=== PATIENT | male | born 1975 | race Asian ===

== ENCOUNTER 2019-07-09 23:54 | Emergency (ER) | payer OTHER ==
[~2019-07-09] VITALS: Ht 180.3 cm; Wt 66.7 kg
[2019-07-10 00:11] VITALS: BP 138/91
--- NOTE | 2019-07-10 00:12 | NUR ---
ER Nurse Note: Pt walked in c/o RT foot pain since 2044. Pt stated a small cabinet fell on his RT foot. Pt able to move toes; pt stated pressure and movement increases pain. Pt took 3 tabs of motrin at 2099 and states 3/10 pain. Pt walks with limp; greater pressure on LT foot than RT foot. Cap refill less than 3 secs. Ankle red in pigmentation and slightly swollen. [facility]
--- NOTE | 2019-07-10 00:35 | Diagnostic Imaging Report ---
EXAM: XR Right Foot Complete, 3 or More Views CLINICAL HISTORY: PAIN TECHNIQUE: Frontal, lateral and oblique views of the right foot. COMPARISON: No relevant prior studies available. FINDINGS: Bones/joints: No acute fracture. No dislocation. Soft tissues: Unremarkable. No radiopaque foreign body. IMPRESSION: No acute osseous abnormalities.
[2019-07-10] MEDS ORDERED: IBUPROFEN600 MG ORAL (00:55)
[2019-07-10 01:00] VITALS: BP 138/91
--- NOTE | 2019-07-10 01:00 | NUR ---
ED Nurse Note: All orders completed per ERMD orders. Pt cleared by health care Provider for discharge. DC instructions/prescription was given and explained to pt and verbalized understanding of teachings. Instructed pt to follow up with primary care physican within one week. All medical deviecs such as ID band removed. Pt is AAO x4, ambulatory and left with all personal belongings.
--- NOTE | 2019-07-10 01:35 | Emergency Room Report ---
History of Present Illness General Chief Complaint: Lower Extremity Injury Source: Patient Present Illness HPI 43-year-old male presents the ED for evaluation of right foot pain. States that he dropped a cabinet on his right foot tonight. States he took medication prior to arrival. Denies pain at this time. States there was initially a lot of pain. States he is able to walk with a hop. Denies any other injuries. No other aggravating relieving factors. Denies any other associated symptoms Allergies: Coded Allergies: No Known Allergies (Unverified , 07/10/19) Patient History Past Medical History: none Past Surgical History: none Pertinent Family History: none Social History: Denies: smoking, alcohol use, drug use Immunizations: UTD Reviewed Nursing Documentation: PMH: Agreed; PSxH: Agreed Nursing Documentation-PMH Past Medical History: No Stated History Review of Systems All Other Systems: negative except mentioned in HPI Physical Exam Vital Signs Date Time Temp Pulse Resp B/P (MAP) Pulse Ox O2 Delivery O2 Flow Rate FiO2 07/10/19 00:02 97.9 60 16 138/91 (107) 99 Room Air Sp02 EP Interpretation: reviewed, normal General Appearance: no apparent distress, alert, GCS 15, non-toxic Head: normocephalic Eyes: bilateral eye normal inspection, bilateral eye PERRL ENT: normal ENT inspection Neck: normal inspection Respiratory: normal inspection Cardiovascular #1: normal inspection Gastrointestinal: normal inspection Rectal: deferred Genitourinary: no CVA tenderness Musculoskeletal: back normal, normal range of motion, gait/station normal, tender - R foot Neurologic: alert, motor strength/tone normal, oriented x3, sensory intact, responsive, speech normal Psychiatric: normal inspection Skin: no rash Lymphatic: normal inspection Procedures Splinting Splinting : Consent: Verbal Pre-Made Type: cast shoe Pre-Proc Neuro Vasc Exam: normal Post-Proc Neuro Vasc Exam: normal Patient Tolerated: Well Complications: None Medical Decision Making Diagnostic Impression: Primary Impression: Foot contusion Qualified Codes: S90.31XA - Contusion of right foot, initial encounter ER Course Hospital Course 43-year-old M presents to ED complaining of R foot pain Differential diagnoses include: Fracture, dislocation, sprain, contusion Clinical course Patient placed on stretcher. After initial history and physical, I ordered Xrays of R foot. patient declined pain meds Xrays read shows no acute fracture/dislocation. placed in cast shoe. I discussed findings with patient. Will discharge home. Safe for discharge with close outpatient follow-up. I will provide referrals Diagnosis - foot contusion Stable and discharged to home with prescription for Motrin. apply ice, keep elevated. weight bear as tolerated. Followup with PMD. Return to ED if symptoms recur or worsen Other X-Ray Diagnostic Results Other X-Ray Diagnostic Results : X-Ray ordered: R foot # of Views/Limited Vs Complete: 3 View Indication: Pain EP Interpretation: Yes Interpretation: no dislocation, no soft tissue swelling, no fractures Impression: No acute disease Electronically Signed by: Electronically signed by Romaine Walker MD Last Vital Signs Date Time Temp Pulse Resp B/P (MAP) Pulse Ox O2 Delivery O2 Flow Rate FiO2 07/10/19 01:00 97.9 60 16 138/91 99 Room Air Status: improved Disposition: HOME, SELF-CARE Condition: Stable Scripts Ibuprofen* (MOTRIN*) 600 Mg Tablet 600 MG ORAL Q8H PRN for For Pain, #30 TAB 0 Refills Prov: Romaine Walker MD 07/10/19 [facility] 24 hour /7 days a week by Appointment Only [address] [address] Departure Forms: Return to Work Return to Work Date: Jul 12, 2019 Work Restrictions: None Patient Instructions: Foot Contusion Romaine Walker MD Jul 10, 2019 01:35
== END 2019-07-10 01:00 | disposition home or self-care (01) ==
LOC: EMR 07-10 00:22
DX: S90.31XA Contusion of right foot, initial encounter (principal); W20.8XXA Other cause of strike by thrown, projected or falling object, initial encounter; Y93.89 Activity, other specified; Y92.9 Unspecified place or not applicable
CPT/HCPCS: 29515; 99283